=== PATIENT | male | born 2000 | race Caucasian/White ===

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

== ENCOUNTER 2024-07-30 06:28 | Emergency (ER) | payer BC, SELFPAY ==
--- NOTE | ~2024-07-30 | CT_ITS ---
Noncontrast CT scan of the lumbar spine CLINICAL HISTORY: Lumbar pain, leg numbness TECHNIQUE: Axial noncontrast imaging of the lumbar spine was performed. Sagittal and coronal reformat anup images were constructed. Dose reduction technique was used on this scan by utilizing automated ex posure control and iterative reconstruction technique. The dose-length product (DLP) was 1111.10 mGy- cm. FINDINGS: No acute fracture or subluxation identified. Vertebral bodies maintain normal height and al ignment. At L1-L2, there is no disc bulge or herniation. No spinal canal stenosis or neural foraminal narrowin g identified. At L2-L3, there is no disc bulge or herniation. No spinal canal stenosis or neural foraminal narrowin g identified. At L3-L4, there is and mild diffuse disc bulge with probable superimposed disc extrusion extending in feriorly, possibly chronic with associated calcification. There is associated severe thecal sac compr ession at the L3-L4 and L4 levels. Neural foramina may be minimally narrowed at this level. At L4-L5, there is mild disc bulge with probable mild canal stenosis. There is probable severe right neural foraminal narrowing. Left neural foramen preserved. At L5-S1, there is no disc bulge or herniation. No spinal canal stenosis. There is probable mild to m oderate bilateral neural foraminal narrowing. Paravertebral soft tissues are unremarkable. Impression: No acute fracture or dislocation. Probable disc extrusion at L3-L4 level extending behind the L4 vertebral body, resulting in severe th ecal sac compression. Please see details above. Consider follow-up MR to better/further evaluate. Probable advanced right neural foraminal narrowing at L4-L5. Probable mild to moderate bilateral neural foraminal narrowing at L5-S1. Reviewed, dictated and finalized at [facility]. [employer] Impression: No acute fracture or dislocation. Probable disc extrusion at L3-L4 level extending behind the L4 vertebral body, resulting in severe thecal sac compression. Please see details above. Consider follow-up MR to better/further evaluate. Probable advanced right neural foraminal narrowing at L4-L5. Probable mild to moderate bilateral neural foraminal narrowing at L5-S1.
[2024-07-30 06:32] VITALS: BP 130/83; PULSE 84; RESP 18; TEMP 37; O2SAT 97
--- NOTE | 2024-07-30 07:02 | PC.NURSE ---
patient returned to room from imaging, awaiting results. mother at bedside. patient report given to NORMA Dexter for continuation of care on days.
--- NOTE | 2024-07-30 07:08 | PC.NURSE ---
Report received from NORMA Mendoza. Pt returns to room from imaging.
--- NOTE | 2024-07-30 07:12 | ED_ITS ---
HPI - Back Pain/Injury General Chief Complaint: Back Pain/Injury Stated Complaint: back pain Time Seen by Provider: 07/30/24 06:50 Source: patient Mode of arrival: wheelchair Limitations: no limitations History of Present Illness HPI Narrative: (699) I received report and assumed care of this patient at shift change. Patient in CT. (706) Patient is 24 year old male who presents to the Emergency Department wi family. Patient has history of cerebral palsy and ADHD. Patient was bowling on league last night and states he threw a ball at 7 pm and felt a pop in lower back with sudden onset of pain. States he was unable to walk and had bilateral numbness to legs. He did not fall, but states he stumbled back to seat and was unable to walk normally since and had to be helped into car and in at home. He states it continues this morning with inability to walk and numbness and tingling to legs. Denies any changes in bowel or bladder. No prior history of. MD elicited complaint: back pain and back injury Onset (ago): hour(s) (12) Timing: constant Severity: moderate Similar Symptoms Previously: No Quality: sharp Location: lumbar spine Exacerbating factors: movement Associated symptoms: weakness, numbness, difficulty walking and loss of sensation in lower extremities Treatments prior to arrival: cold therapy, heat therapy and NSAIDS Work related injury: No Related Data Home Medications ?Medication ?Instructions ?Recorded ?Confirmed ?Last Taken ?Type methylphenidate HCl 27 mg 27 mg PO DAILY 08/02/19 07/30/24 02/15/20 History tablet,extended release 24 hr (Concerta) Allergies Allergy/AdvReac Type Severity Reaction Status Date / Time amoxicillin Allergy Unknown Verified 07/30/24 07:00 Review of Systems Review of Systems: All systems reviewed & are unremarkable except as noted in HPI and below Constitutional: Constitutional: Reports as per HPI, Denies chills, Denies fatigue and Denies fever(s) Eyes: Eyes: Reports as per HPI ENT: Reports system reviewed and no additional complaints, except as docum ented Cardiovascular: Cardiovascular: Reports as per HPI and Denies chest pain Respiratory: Respiratory: Reports as per HPI and Denies dyspnea Gastrointestinal: Gastrointestinal: Reports as per HPI, Denies abdominal pain, Denies diarrhea, Denies nausea and Denies vomiting Genitourinary: Genitourinary: Reports no additional male genitourinary complaints, Denies dysuria, Denies urinary frequency and Denies urinary incontinence Musculoskeletal: Musculoskeletal: Reports no additional musculoskeletal complaints and Reports back pain Integumentary/Breasts: Skin/Breast: Reports system reviewed and no additional complaints, except as docu Neurologic: Reports system reviewed and no additional complaints, except as documented, Reports focal weakness (bilateral legs) and Reports numbness (bilateral legs) Psychiatric: Psychiatric: Reports no additional psychiatric complaints Endocrine: Endocrine: Reports no additional endocrine complaints Hematologic/Lymphatic: Hematologic/Lymphatic: Reports no additional hematologic/lymphatic complaints Allergic/Immunologic: Allergic/Immunologic: Reports no additional allergic/immunologic complaints PMFSH Past Medical History Medical History (Updated 07/30/24 @ 07:51 by Aly Jordan MD) Cerebral palsy ADHD Surgical History Surgical History Status post myringotomy with tube placement of both ears Social History Social History Smoking status: Never smoker Alcohol intake: never Substance use: never Living arrangements: with family Occupation/Education: student Gender identity (if verbalized by the patient): Male Exam Const: General: healthy appearing, no acute distress and alert Nutritional Appearance: well nourished Orientation/consciousness: patient oriented x3 Limitations: no limitations HENMT: Head: normal to inspection Ears: external ears normal Face/Nose/ Sinus: Normal external nose present Face and sinus: normal facial exam Mouth: Yes Normal oral and palatal mucosa present Eyes: Pupils: Equal, round and reactive pupils present EOM: EOMs intact bilaterally Direct Ophthalmoscopy: no photophobia Neck: Neck: normal visual inspection and no meningeal signs Chest: Chest palpation & inspection: normal inspection of the chest Resp: Effort & Inspection: normal respiratory effort Auscultation: clear to auscultation bilaterally Cardio: Rate: regular rate Rhythm: regular rhythm GI: Inspection: non-distended GI Palp: Yes Soft to palpation and No Tenderness to palpation present (GI) : General: Yes bladder normal to palpation Back/Spine/Pelvis: Back: no CVA tenderness Skin: General skin exam: normal color Rashes: no rashes Neuro: General: patient oriented x3 and moves all extremities Speech: normal speech Other: Sensations intact and symmetric DTR's knees /ankles brisk 3+ Extrem: General: normal to inspection and no clubbing, cyanosis or edema Other: + straight leg raise bilaterally. Good strength and tone. Psych: Mental Status: mental status grossly normal Course Course Emergency Course: (699) I received report and assumed care of this patient at shift change. (706) I saw patient and obtained history of performed exam. Patient c/o some LBP, onset while bowling, when he felt pop and sudden LBP. States unable to stand due to bilateral leg weakness and numbness. No bowel or bladder changes. PE: + straight leg raise bilaterally, strength intact, sensations intact and symmetric, DTR's 3+ brisk *attempted to stand patient. Very weak and wobbling and unable to take step forward to pain and weakness. CT L-spine: no acute fx or dislocation. Disc extrusion L3-4 level extends behind L4 vertebral body resulting in severe thecal sac compression. Probable advanced R neuro foraminal narrowing L4-5. Bladder scan: 452 ml [does not feel need to urinate] Tx: Toradol 60 mg IM, Flexeril 10 mg po. [states no relief] Dilaudid 1 mg IM. [facility]. (0745) Call placed to [facility] transfer for NS consult and possible transfer. No beds, placed on Wait List. (075) Call placed to [facility]. No beds available, patient placed on Wait List. (0815) [facility] contacted. Will call back. (45) Discussed with Dr. Okeefe () at [place]. Feels patient needs urgent evaluation and would have a hard time getting MRI in timely fashion. Recommends transfer to [facility]. Rec bladder scan.\ (899) Report given to Kelly with [facility]. Will contact [facility] and call back. (45) Discussed with Dr. Gutierrez (). Would like patient transferred and he will see in consultation, hospitalist admit. Transfer will contact Hospitalist and call back. (5) Discussed with Dr. Rose (Hospitalist - [facility]). Report given, patient accepted for transfer. Requests [facility]. Awaiting bed assignment. (1030) [facility] called with bed assignment. [facility], Bed 8214. Call report to [phone]. Vital Signs Vital signs: Vital Signs Temperature 37.0 C 07/30/24 06:32 Pulse Rate 84 01/21/25 06:32 Respiratory Rate 18 07/30/24 06:32 Blood Pressure 130/83 07/30/24 06:32 Pulse Oximetry 97 07/30/24 06:32 Oxygen Delivery Room Air 07/30/24 06:32 Temperature 37.3 C 07/30/24 09:34 Pulse Rate 73 07/30/24 09:34 Respiratory Rate 20 07/30/24 09:34 Blood Pressure 138/82 07/30/24 09:34 Pulse Oximetry 98 07/30/24 09:34 Oxygen Delivery Room Air 07/30/24 09:34 Discharge Plan Discharge Clinical Impression: Strain of lumbar region, ADHD, Cerebral palsy, Bulging lumbar disc, Lumbar disc disease with radiculopathy Patient Language: Moroccan Prescriptions: No Action methylphenidate HCl [Concerta] 27 mg tablet extended release 24hr 27 mg PO DAILY Follow-up/Referrals: Marvel Gonzalez M.D. [Primary Care Provider] -
[2024-07-30] MEDS: KETOROLAC (*BKC) 60 MG/2 ML VIAL IM (07:18)
[2024-07-30] MEDS: CYCLOBENZAPRINE HCL 10 MG TABLET PO (07:18)
[2024-07-30] MEDS: HYDROmorphone HCL INJ (*CRX) 2 MG/ML VIAL 1 MG IM (08:31)
--- NOTE | 2024-07-30 08:43 | PC.NURSE ---
Dr Okeefe, [facility], calls to speak with Dr Jordan
--- NOTE | 2024-07-30 09:07 | PC.NURSE ---
Radiology contacted to push images to [facility]
--- NOTE | 2024-07-30 09:11 | PC.NURSE ---
Attempted to ambulate pt to assess. Pt able to stand with 2 assist. Unable to take a forward step. Pt c/o pain and weakness during trial.
[2024-07-30 09:34] VITALS: BP 138/82; PULSE 73; RESP 20; TEMP 37.3; O2SAT 98
--- NOTE | 2024-07-30 09:48 | PC.NURSE ---
Dr. Gutierrez with [facility] calls to speak with Dr. Jordan.
== END 2024-07-30 12:05 | disposition short-term general hospital (02) ==
PROVIDERS: Emergency Provider Emergency Medicine; PCP Family Medicine
DX: S39.012A Strain of muscle, fascia and tendon of lower back, initial encounter (principal); F90.9 Attention-deficit hyperactivity disorder, unspecified type; G80.9 Cerebral palsy, unspecified; M51.16 Intervertebral disc disorders with radiculopathy, lumbar region; X58.XXXA Exposure to other specified factors, initial encounter
CPT/HCPCS: 72131; 96372; 99285; A9270; J1171; J1885

== ENCOUNTER 2024-09-19 13:47 | Outpatient (RCR) | payer BC, MEDICAID, SELFPAY ==
--- NOTE | 2024-09-19 14:54 | OPREHPOC ---
Outpatient Therapy Plan of Care This is a Multidisciplinary Plan of Care that may contain components documented by all disciplines (PT, OT, and ST.) PT Problem 1 PT Problem #1 Knowledge Deficit PT Goal 1 Goal / Goal Update 1. independent and compliant with HEP Target Visit 6 PT Problem 2 PT Problem #2 Impaired Strength PT Goal 1 Goal / Goal Update 1. improve bilateral hip abd and ext strength to 4 /5 or better overall 2. improve bilateral ankle PF to 4+/5 or better 3. improve bilateral ankle DF to 4+/5 or better Target Visit 12 PT Problem 3 PT Problem #3 Impaired Balance PT Goal 1 Goal / Goal Update 1. low fall risk per the tinetti. 2. TUG to be completed safely under 12 seconds without any AD. Target Visit 12 PT Problem 4 PT Problem #4 Impaired Functional Mobility PT Goal 1 Goal / Goal Update 1. patient to ambulate safely without any AD at all times 2. patient to safely squat and lift 20lbs from floor to waist 3. no falls reported in the last 4 weeks 4. oswestry to display 0% functional deficits Target Visit 12
--- NOTE | 2024-09-19 14:54 | PTOPEVAL1 ---
Assessment and note entered by JT File, PT Evaluation Information Assessment Status Evaluation Diagnosis s/p lumbar decompression of spinal cord ICD-10 Condition Codes (PT) Encounter for other orthopedic aftercare Z47.89 Other ICD-10 Condition Codes ( Z98.890 PT) Onset 07/29/2024 Subjective Information patient reports he went bowling back in july, and felt his R side collapse and went numb from the waste down. he went to the ER the next day and was rushed into emergency back surgery. he reports he has degenerative back disease, nerve compression, and cauda equina. he reports before all of this, he was walking without any AD. he was working, but is currently off. he reports since surgery, he is beginning to regain feeling in his legs, but he still has a lot of bladder issues. he reports he is also weak in his feet and unable to pull his toes up. he reports he returns to see the surgeon on 11/11/24. he reports he is unaware of any restrictions at this time. Reported Pain Level Pain Score 0: Self Report Assessment PT Clinical Summary mr. thurman is a 24 yo man who presents to skilled PT following lumbar spinal decompression surgery. he had an injury while bowling that required immediate surgical decompression. he now presents with bladder issues, balance deficits, proximal LE weakness, unsteady gait, and decreased functional activity performance/quality of life. continued skilled PT is indicated to improve patients objective/functional deficits and progress towards a return to his prior level functional activity performance/quality of life. Plan of Care Interventions Gait Training,Neuro Re-education,Patient/Caregiver Education,Therapeutic Activities,Therapeutic Exercise PT Services Indicated Yes Treatment Frequency and 3x weekly for 12 visits Duration These treatments will address the objective and functional deficits as defined above. The patient will be advanced safely and appropriately in order for the patient to progress towards his/her prior level of function. Additional exercises will be introduced and as well as a comprehensive home exercise program upon discharge, if needed, ?to ensure carryover of functional gains achieved in the clinic. This treatment plan has been reviewed and agreement upon by the patient.
--- NOTE | 2024-09-25 13:41 | PCPTNOTE ---
Cancelled session. Pt reports no control over his bladder today.
--- NOTE | 2024-10-18 16:03 | PTOPPROG ---
Assessment and note entered by Nicole Morrison, PT Evaluation Information Assessment Status Progress Diagnosis s/p lumbar decompression of spinal cord ICD-10 Condition Codes (PT) Encounter for other orthopedic aftercare Z47.89 Other ICD-10 Condition Codes ( Z98.890 PT) Onset 07/29/2024 Subjective Information Emanuel feels like he has made great improvement in his functional mobility since beginning therapy. He has not had any falls in the last 4 weeks and has transitioned to ambulating without an AD. We have provided education on use of a cane and pt is agreeable to purchasing one but has not done so at this time. He also feels like his bladder control has improved slightly but feels like he can still improve on his balance and leg strength. Assessment PT Clinical Summary Mr. Lange has attended 10 total skilled physical therapy visits s/p lumbar decompression surgery. His gross LE strength has improved however he still demonstrates significant hip abductor and ankle plantarflexor weakness, as well as balance deficits that continue to impair his functional mobility. He has transitioned to ambulating without an AD but continues to experience frequent knee buckling that increases fall risk. He will continue to benefit from skilled PT intervention to continue making progress to improve safety and functional status to be able to perform normal daily tasks with less difficulty. He may also benefit from lower extremity bracing to prevent knee buckling and improve safety. Plan of Care Interventions Electrical Stimulation,Gait Training,Hot Pack/Cold Pack,Manual Therapy,Neuro Re-education,Patient/ Caregiver Education,Therapeutic Activities, Therapeutic Exercise,Self-Care/Home Management PT Services Indicated Yes Treatment Frequency and Continue per original POC Duration These treatments will address the objective and functional deficits as defined above. The patient will be advanced safely and appropriately in order for the patient to progress towards his/her prior level of function. Additional exercises will be introduced and as well as a comprehensive home exercise program upon discharge, if needed, ?to ensure carryover of functional gains achieved in the clinic. This treatment plan has been reviewed and agreement upon by the patient.
--- NOTE | 2024-11-07 16:03 | OPREHPOC ---
Outpatient Therapy Plan of Care This is a Multidisciplinary Plan of Care that may contain components documented by all disciplines (PT, OT, and ST.) PT Problem 1 PT Problem #1 Knowledge Deficit PT Goal 1 Goal / Goal Update 1. independent and compliant with HEP Target Visit 6 Progress Met PT Problem 2 PT Problem #2 Impaired Strength PT Goal 1 Goal / Goal Update 1. improve bilateral hip abd and ext strength to 4 /5 or better overall -not met 2. improve bilateral ankle PF to 4+/5 or better - not met 3. improve bilateral ankle DF to 4+/5 or better - met Target Visit 12 Progress Partially Met PT Problem 3 PT Problem #3 Impaired Balance PT Goal 1 Goal / Goal Update 1. low fall risk per the tinetti. -not met 2. TUG to be completed safely under 12 seconds without any AD. -met Target Visit 12 Progress Partially Met PT Problem 4 PT Problem #4 Impaired Functional Mobility PT Goal 1 Goal / Goal Update 1. patient to ambulate safely without any AD at all times -not met 2. patient to safely squat and lift 20lbs from floor to waist -not met 3. no falls reported in the last 4 weeks -met 4. oswestry to display 0% functional deficits -met Target Visit 12 Progress Partially Met
--- NOTE | 2024-11-07 16:04 | PTOPEVAL1 ---
Assessment and note entered by Adela Hernandez, PT Evaluation Information Assessment Status Discharge Diagnosis s/p lumbar decompression of spinal cord ICD-10 Condition Codes (PT) Encounter for other orthopedic aftercare Z47.89 Other ICD-10 Condition Codes ( Z98.890 PT) Onset 07/29/2024 Subjective Information Emanuel reports his back is doing better overall. He does have an ulcer on his right foot that he had to start seeing a data analytics specialist for and he is wearing an orthopedic shoe to allow optimal healing. He also has an appointment to get custom orthotics on 11/18/24. He also is still having issues with bowel and bladder control so his PCP referred him to a neurologist. He had a MRI recently as well of his lumbar spine and will be seeing his neurosurgeon on 11/11/24 to receive the results. He has not had any falls recently but does still feel unbalanced. He does still have back pain with standing to wash dishes. He is also unable to drive due to weakness in the foot/ankle . Reported Pain Level Pain Score 0,1: Self Report Assessment PT Clinical Summary Emanuel Lange has completed 12 skilled PT visits following lumbar decompression surgery performed on 07/29/24. He is reporting less back pain except with prolonged standing which limits his ability to perform paper counter like washing dishes. He continues to have difficulty raising onto his toes and walking without an AD due to decreased balance. He is also unable to drive or work. He objectively demonstrates improved core and LE strength, improved gait, and improved balance. Despite these improvements, he continues to have weakness in the plantarflexors, hip extensors, hip abductors, and core muscles; decreased balance with a high fall risk per the [place]; altered gait; and decreased functional abilities. He will see his surgeon on 11/11/24. We await further instruction regarding his care. Plan of Care Interventions Gait Training,Neuro Re-education,Patient/Caregiver Education,Therapeutic Activities,Therapeutic Exercise PT Services Indicated Yes Treatment Frequency and PT on hold until follow up with MD on 11/11/24 Duration These treatments will address the objective and functional deficits as defined above. The patient will be advanced safely and appropriately in order for the patient to progress towards his/her prior level of function. Additional exercises will be introduced and as well as a comprehensive home exercise program upon discharge, if needed, ?to ensure carryover of functional gains achieved in the clinic. This treatment plan has been reviewed and agreement upon by the patient.
== END 2024-12-18 23:59 | disposition home or self-care (01) ==
LOC: CHSPT 13:47
PROVIDERS: Visit Provider Family Medicine
DX: Z98.890 Other specified postprocedural states (principal)
CPT/HCPCS: 97110; 97112; 97116; 97150; 97161; 97530; 97750